=== PATIENT | male | born 1960 | race Hispanic/Latino ===

== ENCOUNTER 2017-09-22 13:14 | Outpatient (CLI) | payer OTHER ==
--- NOTE | 2017-09-22 14:09 | XRay Report ---
RIGHT WRIST, 4 VIEWS: History: Pain in right wrist. Mild osteopenia is noted. Mild vascular calcifications are identified. No evidence for fracture, dislocation, ligamentous injury or bone lesion. IMPRESSION: Osteopenia. Otherwise, unremarkable exam.
== END 2017-09-22 13:15 | disposition home or self-care (01) ==
LOC: XRAY 13:14
PROVIDERS: ATTEND Orthopaedic Surgery
DX: M25.531 Pain in right wrist (principal); M85.88 Other specified disorders of bone density and structure, other site; E03.9 Hypothyroidism, unspecified; E11.65 Type 2 diabetes mellitus with hyperglycemia